=== PATIENT | female | born 1970 ===

== ENCOUNTER → 2018-08-16 22:14 | Outpatient (ROUT) | payer SELFPAY ==
[2018-08-16 23:44] LABS: Free T4, Direct Thyroxine 1.07 ng/dL (0.78-2.19)
[2018-08-16 23:58] LABS: Thyroid Stimulating Hormone 3.47 uIU/mL (0.47-4.68)
[2018-08-18 16:27] LABS: Anti Thyroglobulin Antibody < 1 IU/mL (< 2); Thyroid Peroxidase Antibodies < 1 IU/mL (< 9); Triiodothyronine T3 Total 106 ng/dL (76-181)
[2018-08-19 18:50] LABS: ANA Screen, IFA Negative (Negative)
== END ==
PROVIDERS: Visit Provider Family Medicine
DX: R53.83 Other fatigue (principal); L20.84 Intrinsic (allergic) eczema; E03.9 Hypothyroidism, unspecified
CPT/HCPCS: 36415; 84439; 84443; 84480; 86038; 86376; 86800